=== PATIENT | male | born 1950 | race Caucasian/White ===

== ENCOUNTER → 2016-10-10 | Outpatient (CLI) | payer OTHER ==
[~2016-10-10] VITALS: Ht 167.6 cm; Wt 89.4 kg
[~2016-10-10] MED LIST: ALLOPURINOL300 MG PO; COZAAR100 MG PO; FISH OIL CONC1 EACH PO; LIPITOR10 MG PO; LOW DOSE ASPIRI81 M1 PO; LOW DOSE ASPIRI81 M2 PO; Motrin PO; NORVASC5 MG PO; PERCOCET 5/31 TABLET PO; TYLENOL EXTRA500 MG PO; VITAMIN D-32000 UNI2 PO
== END | disposition home or self-care (01) ==
LOC: AMB 07:18
DX: Z12.11 Encounter for screening for malignant neoplasm of colon (principal); Z09 Encounter for follow-up examination after completed treatment for conditions other than malignant neoplasm; Z86.010 Personal history of colon polyps; D12.0 Benign neoplasm of cecum; D12.3 Benign neoplasm of transverse colon; D12.2 Benign neoplasm of ascending colon; K64.8 Other hemorrhoids; I10 Essential (primary) hypertension; E78.5 Hyperlipidemia, unspecified; Z87.442 Personal history of urinary calculi; Z87.891 Personal history of nicotine dependence; E03.9 Hypothyroidism, unspecified; E66.9 Obesity, unspecified; Z68.34 Body mass index [BMI] 34.0-34.9, adult; R73.03 Prediabetes; E55.9 Vitamin D deficiency, unspecified; Z86.69 Personal history of other diseases of the nervous system and sense organs; Z82.49 Family history of ischemic heart disease and other diseases of the circulatory system; Z83.3 Family history of diabetes mellitus
CPT/HCPCS: 88305; 93005; B4087; J2250; J3010